=== PATIENT | female | born 1950 | race Caucasian/White ===

== ENCOUNTER 2016-05-15 05:45 | Day surgery (SDC) | payer OTHER ==
[2016-05-04 13:27] VITALS: BMI 33.4
[2016-05-15] MEDS ORDERED: MIDAZOLAM HCL 2 MG/2 ML SINGLE DOSE VIAL ONE (06:43)
[2016-05-15] MEDS ORDERED: DEXAMETHASONE SOD PHOSPHATE/PF 10 MG/ML SDV ONE (06:44)
[2016-05-15] MEDS ORDERED: ROPIVACAINE HCL 0.5% 30ML VIAL ONE (06:44)
--- NOTE | 2016-05-15 07:17 | HP ---
Admitting History and Physical - Admission Chief Complaint: Left shoulder pain History of Present Illness: 66 yo female presents with 6 months of worsening pain and decreased movement in her left shoulder. She presents for a planned left shoulder arthroscopic rotator cuff repair with Dr. Terry. History Source: Patient Limitations to Obtaining History: No Limitations - Past Medical History Cardiovascular: Yes: CAD (s/p stent placement), HTN, Hyperlipdemia Pulmonary: Yes: Cancer (s/p right pneumonectomy) ...: No - Past Surgical History Past Surgical History: Yes: Joint Replacement (Left hip), Stent (4 years ago) Additional Past Surgical History: 2008 right pneumonectomy for lung cancer - Advance Directives Advance Directives: Yes: Health Care Proxy - Smoking History Smoking history: Former smoker Have you smoked in the past 12 months: No If you are a former smoker, when did you quit?: 2000 - Alcohol/Substance Use Hx Alcohol Use: No Home Medications - Allergies Allergies/Adverse Reactions: Allergies Allergy/AdvReac Type Severity Reaction Status Date / Time oxycodone HCl Allergy Itching Verified 05/15/16 06:14 [From OxyContin] - Home Medications Home Medications: Ambulatory Orders Aspirin [[place] Aspirin] 81 mg PO DAILY 05/04/16 Atorvastatin Ca [Lipitor] 80 mg PO HS 05/04/16 Furosemide [Lasix] 20 mg PO DAILY 05/04/16 Isosorbide Dinitrate [Isordil -] 30 mg PO BID 05/04/16 Losartan Potassium [Cozaar -] 50 mg PO DAILY 05/04/16 Metoprolol Succinate [Toprol Xl -] 100 mg PO DAILY 05/04/16 Pantoprazole Sodium [Protonix] 40 mg PO DAILY 05/04/16 Prasugrel HCl [Effient] 10 mg PO DAILY 05/04/16 Topiramate [Topamax] 25 mg PO DAILY 05/04/16 Review of Systems - Review of Systems Constitutional: denies: Chills, Fever HENT: denies: Throat Pain Cardiovascular: denies: Chest Pain, Shortness of Breath Respiratory: denies: Cough, SOB Gastrointestinal: denies: Abdominal Pain, Nausea, Vomiting Genitourinary: denies: Burning, Dysuria Musculoskeletal: reports: Decreased ROM (decreased ROM left shoulder, pain with movement), Joint Pain (left shoulder) Neurological: denies: Dizziness, Headache Hematology/Lymphatic: denies: Easily Bruised, Excessive Bleeding Physical Examination Vital Signs: Vital Signs Temperature 97.8 F 05/15/16 06:07 Pulse Rate 76 05/15/16 06:07 Respiratory Rate 16 05/15/16 06:07 Blood Pressure 110/64 05/15/16 06:07 O2 Sat by Pulse Oximetry (%) 97 05/15/16 06:14 Constitutional: Yes: Well Nourished, No Distress, Calm HENT: Yes: Atraumatic, Normocephalic Cardiovascular: Yes: Regular Rate and Rhythm Respiratory: Yes: Regular (CTA) Gastrointestinal: Yes: WNL, Soft Musculoskeletal: Yes: Joint Stiffness (Left shoulder decreased ROM, pain with movement) Extremities: No: Calf Tenderness Integumentary: Yes: WNL Neurological: Yes: Alert, Oriented Problem List - Problems (1) Rotator cuff disorder Code(s): M67.919 - UNSP DISORDER OF SYNOVIUM AND TENDON, UNSPECIFIED SHOULDER Assessment/Plan 66 yo female presents with 6 months of worsening pain and decreased movement in her left shoulder. She presents for a planned left shoulder arthroscopic rotator cuff repair with Dr. Terry.
[2016-05-15] MEDS ORDERED: MEPIVACAINE HCL/PF 15 MG/ML ML ONE (07:21)
[2016-05-15] MEDS ORDERED: PROPOFOL 20 ML ONE ×2 (07:33)
[2016-05-15] MEDS ORDERED: BUPIVACAINE HCL/EPINEPHRINE/PF 30 ML VIAL IJ ONE (07:39)
[2016-05-15] MEDS ORDERED: ceFAZolin SODIUM 1 GM VIAL ONE (07:57)
[2016-05-15] MEDS ORDERED: ONDANSETRON 4 MG/2 ML VIAL ONE (08:00)
[2016-05-15] MEDS ORDERED: DEXAMETHASONE SOD PHOSPHATE 4 MG/1 ML VIAL ONE (08:00)
--- NOTE | 2016-05-15 08:54 | DS ---
Physical Examination Vital Signs: Vital Signs Temperature 97.8 F 05/15/16 06:07 Pulse Rate 76 05/15/16 06:07 Respiratory Rate 16 05/15/16 06:07 Blood Pressure 110/64 05/15/16 06:07 O2 Sat by Pulse Oximetry (%) 97 05/15/16 06:14 Discharge Summary Reason For Visit: ROTATOR CUFF TEAR, SYNOVITIS, LOOSE BODIES LEFT SH Current Active Problems Rotator cuff disorder (Acute) Condition: Good - Instructions Diet, Activity, Other Instructions: Post Operative Instructions: Shoulder Arthroscopy Dr Jason Terry 1. Pain following a Shoulder Arthroscopy is variable and can be significant. Some patients will have more pain than others. You have been provided with a prescription for medication that contains a narcotic. You are not allowed to drive while on this medication. You should NOT take Tylenol (Acetaminophen) when taking the pain medication ( it will result in an overdose). Feel free to take medications such as Ibuprofen or Naprosyn in addition to the pain medicine if you do not have any problems with the NSAID class of medications. 2. Apply ice to the shoulder for 15 minutes every hour. You may continue this for as many days as necessary. 3. You may find sleeping on an incline (reclining chair) to be more comfortable for the first few days. 4. You may remove your sling when the arm is comfortable. 5. You may use the arm as tolerated. 6. You may remove the bandages in 48 hours. You may shower at that point. 7. Place band-aids on the sutures after your shower.Do not put any creams or lotions on the incision until after the sutures are removed. 8. Please call the office to schedule a visit to have your sutures removed. 9. If for any reason you believe you may have an infection or are concerned, please feel free to call me. I can be reached through our office number 24 hours a day. 10. Please call our office with any questions; we will review the surgical findings during your post-operative visit. Disposition: HOME - Home Medications Comprehensive Discharge Medication List: Ambulatory Orders Aspirin [[place] Aspirin] 81 mg PO DAILY 05/04/16 Atorvastatin Ca [Lipitor] 80 mg PO HS 05/04/16 Furosemide [Lasix] 20 mg PO DAILY 05/04/16 Isosorbide Dinitrate [Isordil -] 30 mg PO BID 05/04/16 Losartan Potassium [Cozaar -] 50 mg PO DAILY 05/04/16 Metoprolol Succinate [Toprol Xl -] 100 mg PO DAILY 05/04/16 Pantoprazole Sodium [Protonix] 40 mg PO DAILY 05/04/16 Prasugrel HCl [Effient] 10 mg PO DAILY 05/04/16 Topiramate [Topamax] 25 mg PO DAILY 05/04/16
--- NOTE | 2016-05-15 08:54 | OP ---
Operative Note - Note: Operative Date: 05/15/16 Pre-Operative Diagnosis: LEft shoulder mild OA, loose body, rotator cuff tear Operation: LSA, synovectomy, loose body removal, rotator cuff repair, decompression Post-Operative Diagnosis: Same as Pre-op Surgeon: Jason Terry Anesthesiologist/BLENDER: Mickey Luz Anesthesia: Local Operative Report Dictated: Yes
[2016-05-15] MEDS ORDERED: ONDANSETRON 4 MG/2 ML VIAL IVPUSH PRN (09:24)
[2016-05-15] MEDS ORDERED: HYDROmorphone HCL 2 MG TABLET PO PRN (09:25)
[2016-05-15] MEDS ORDERED: LACTATED RINGERS SOLUTION 1,000 ML IV SCH (09:30)
[2016-05-15] MEDS ORDERED: KETOROLAC TROMETHAMINE 30 MG/1 ML VIAL ONE (09:45)
[2016-05-15] MEDS ORDERED: ALBUTEROL SO4 0.083% IH SOL 2.5 MG/3 ML VIAL.NEB. NEB ONE ×2 (10:38→11:01)
[2016-05-15 11:58] VITALS: TEMP 98
[2016-05-15] MEDS ORDERED: HYDROmorphone HCL 2 MG TABLET ONE (13:09)
[2016-05-15 13:18] VITALS: BP 132/74; PULSE 95
--- NOTE | 2016-05-15 14:38 | SURG ---
Surgery Dry Cure Worker Note Dry Cure Worker: Roselyn Jasmine PA-C Date of Service: 05/15/16 Diagnosis: Left shoulder mild OA, loose body, rotator cuff tear Procedure: LSA, synovectomy, loose body removal, rotator cuff repair, decompression I was present for the entirety of the operative procedure. For further detail, please refer to operative report. Visit type - Case Type Case Type: Scheduled Admission - New patient This patient is new to me today: Yes Date on this admission: 05/15/16
--- NOTE | 2016-05-18 10:33 | PATH ---
Surgical Pathology Report Patient Name: LIBERTY KWOK [facility]. Rec. #: [id number] /Age/Gender: 1950 (Age: 66) / F Account: [id number] Location: [facility] Taken: 05/15/2016 Received: 05/15/2016 Reported: 05/18/2016 Physicians: Jason Terry M.D. Specimen(s) Received A: LEFT SHOULDER SHAVINGS B: LEFT SHOULDER LOOSE BODIES Clinical History Tear, synovitis, loose bodies left shoulder Final Diagnosis A. LEFT SHOULDER, ARTHROSCOPIC SHAVINGS: HYPERPLASTIC SYNOVIUM WITH ACUTE AND CHRONIC INFLAMMATION AND AREAS OF FIBRINOID NECROSIS, AND PORTIONS OF HYALINE CARTILAGE. B. SOFT TISSUE, LEFT SHOULDER LOOSE BODIES, EXCISION: PORTIONS OF SYNOVIUM WITH FIBRINOID NECROSIS, AND AREAS OF CARTILAGINOUS METAPLASIA CONSISTENT WITH LOOSE BODY. Electronically Signed Jose Carlos Peterson M.D. Gross Description A. Received in formalin, labeled "left shoulder shavings," is a 1.5 x 1.1 x 0.2 cm aggregate of bhagat soft tissue fragments. The specimen is submitted in toto in one cassette. B. Received in formalin, labeled "left shoulder loose bodies," is a 2.0 x 0.4 x 0.2 cm bhagat-yellow, irregular portion of tissue. The specimen is submitted in toto in one cassette. /05/15/2016 saudi05/15/2016
== END 2016-05-15 14:45 | disposition home or self-care (01) ==
LOC: FASU 05:45
PROVIDERS: ATTEND Orthopaedic Surgery
PROC: 0RBK4ZZ Excision of Left Shoulder Joint, Percutaneous Endoscopic Approach (ICD-10-PCS; 2016-05-15)
PROC: 0RCK4ZZ Extirpation of Matter from Left Shoulder Joint, Percutaneous Endoscopic Approach (ICD-10-PCS; 2016-05-15)
PROC: 0LB24ZZ Excision of Left Shoulder Tendon, Percutaneous Endoscopic Approach (ICD-10-PCS; principal; 2016-05-15 08:16)
PROC: 0RNK4ZZ Release Left Shoulder Joint, Percutaneous Endoscopic Approach (ICD-10-PCS; 2016-05-15 08:16)
DX: M75.102 Unspecified rotator cuff tear or rupture of left shoulder, not specified as traumatic (principal); M19.012 Primary osteoarthritis, left shoulder; M24.012 Loose body in left shoulder; M65.812 Other synovitis and tenosynovitis, left shoulder; I10 Essential (primary) hypertension; I25.10 Atherosclerotic heart disease of native coronary artery without angina pectoris; Z95.5 Presence of coronary angioplasty implant and graft; Z85.118 Personal history of other malignant neoplasm of bronchus and lung
CPT/HCPCS: 88304-TC; 94760